=== PATIENT | male | born 1970 | race Two or more races ===

== ENCOUNTER 2017-10-23 13:23 | Emergency (ER) | payer OTHER ==
[~2017-10-23] VITALS: Ht 172.7 cm; Wt 81.6 kg
== END 2017-10-23 16:02 | disposition home or self-care (01) ==
LOC: ER 13:23
DX: S83.8X2A Sprain of other specified parts of left knee, initial encounter (principal); X50.3XXA Overexertion from repetitive movements, initial encounter; Y93.89 Activity, other specified; Y92.69 Other specified industrial and construction area as the place of occurrence of the external cause; Y99.8 Other external cause status

== ENCOUNTER 2018-03-30 09:52 | Outpatient (CLI) | payer OTHER | END 2018-03-30 13:10 | disposition home or self-care (01) | LOC: LAB 09:52 | DX: E78.49 Other hyperlipidemia (principal); F17.200 Nicotine dependence, unspecified, uncomplicated; Z13.1 Encounter for screening for diabetes mellitus; Z12.5 Encounter for screening for malignant neoplasm of prostate; Z12.11 Encounter for screening for malignant neoplasm of colon ==

== ENCOUNTER 2018-03-30 11:25 | Outpatient (CLI) | payer OTHER | END 2018-03-30 16:36 | disposition home or self-care (01) | LOC: SONOGRAMA 11:25 | DX: E78.49 Other hyperlipidemia (principal); F17.200 Nicotine dependence, unspecified, uncomplicated; Z13.1 Encounter for screening for diabetes mellitus; Z12.5 Encounter for screening for malignant neoplasm of prostate; Z12.11 Encounter for screening for malignant neoplasm of colon ==

== ENCOUNTER 2018-04-12 08:19 | Outpatient (CLI) | payer OTHER | END 2018-04-12 10:00 | disposition home or self-care (01) | LOC: NUCLEAR 08:19 | DX: R31.29 Other microscopic hematuria (principal); R97.20 Elevated prostate specific antigen [PSA]; E78.2 Mixed hyperlipidemia; Q61.00 Congenital renal cyst, unspecified; R14.0 Abdominal distension (gaseous); B07.0 Plantar wart; E75.5 Other lipid storage disorders; K82.9 Disease of gallbladder, unspecified | CPT/HCPCS: 78227; A9537 ==

== ENCOUNTER 2021-01-21 08:58 | Outpatient (CLI) | payer OTHER | END 2021-01-21 09:13 | disposition home or self-care (01) | LOC: TOM 08:58 | PROVIDERS: ATTEND Specialist | DX: I10 Essential (primary) hypertension (principal); G89.21 Chronic pain due to trauma; F17.298 Nicotine dependence, other tobacco product, with other nicotine-induced disorders ==

== ENCOUNTER 2021-01-21 10:27 | Outpatient (CLI) | payer OTHER | END 2021-01-21 10:34 | disposition home or self-care (01) | LOC: LAB 10:27 | PROVIDERS: ATTEND Specialist | DX: G89.21 Chronic pain due to trauma (principal); F17.208 Nicotine dependence, unspecified, with other nicotine-induced disorders; Z12.5 Encounter for screening for malignant neoplasm of prostate; Z13.29 Encounter for screening for other suspected endocrine disorder; Z13.1 Encounter for screening for diabetes mellitus; Z12.11 Encounter for screening for malignant neoplasm of colon; Z13.220 Encounter for screening for lipoid disorders ==

== ENCOUNTER 2021-01-23 15:03 | Outpatient (CLI) | payer OTHER | END 2021-01-23 15:06 | disposition home or self-care (01) | LOC: LAB 15:03 | PROVIDERS: ATTEND Specialist | DX: G89.21 Chronic pain due to trauma (principal); F17.298 Nicotine dependence, other tobacco product, with other nicotine-induced disorders; Z12.5 Encounter for screening for malignant neoplasm of prostate; Z13.29 Encounter for screening for other suspected endocrine disorder; Z13.1 Encounter for screening for diabetes mellitus; Z12.11 Encounter for screening for malignant neoplasm of colon; Z13.220 Encounter for screening for lipoid disorders ==

== ENCOUNTER 2022-03-24 11:37 | Outpatient (CLI) | payer OTHER | END 2022-03-24 11:51 | disposition home or self-care (01) | LOC: MRI 11:37 | PROVIDERS: ATTEND Specialist | DX: M25.122 Fistula, left elbow (principal) | CPT/HCPCS: 73221 ==

== ENCOUNTER → 2022-04-09 09:00 | Outpatient (CLI) | payer OTHER | END | disposition home or self-care (01) | LOC: LAB 09:00 | PROVIDERS: ATTEND Specialist | DX: Z13.220 Encounter for screening for lipoid disorders (principal); Z13.1 Encounter for screening for diabetes mellitus; Z13.5 Encounter for screening for eye and ear disorders; Z12.11 Encounter for screening for malignant neoplasm of colon ==